=== PATIENT | male | born 1955 | race Caucasian/White ===

== ENCOUNTER → 2023-06-26 07:56 | Outpatient (CLI) | payer MEDICARE, OTHER, SELFPAY ==
--- NOTE | 2023-06-26 08:32 | DI.MRI.S_ITS ---
PROCEDURE: MR SHOULDER RT WO CON INDICATIONS: RIGHT SHOULDER WEAKNESS TECHNIQUE: Noncontrast oblique coronal T2 fast spin echo with fat saturation, oblique sagittal T1 spin echo and T2 fast spin echo with fat saturation, axial T1 spin echo and T2 fast spin echo with fat saturation through the shoulder. COMPARISON: None. FINDINGS: Image quality: Excellent. Rotator cuff: Full-thickness tearing of the entire supraspinatus and infraspinatus tendons with medial retraction and atrophy of the supraspinatus and infraspinatus. There is full-thickness tearing of the upper subscapularis tendon. The teres minor tendon is intact. Bones and bursae: No bone marrow contusions or fractures. Moderate glenohumeral and acromioclavicular joint degeneration. The acromion demonstrates conventional anatomy, without an os acromiale. No pathologic subacromial-subdeltoid or subcoracoid bursal fluid is present. Capsule and soft tissues: There is diffuse degenerative fraying of the glenoid labrum. Full-thickness biceps tendon tearing is present. There is a small glenohumeral joint effusion. Multiple intra-articular loose bodies are present, largest of which is in the posterior aspect of the glenohumeral joint measuring roughly 10 mm diameter. The rotator interval appears normal, without fibrosis. The coracohumeral ligament is normal in thickness. IMPRESSION: 1. Full-thickness tearing and atrophy of the supraspinatus and infraspinatus tendons. 2. Full-thickness tearing of the subscapularis as above. 3. Acromioclavicular and glenohumeral joint osteoarthritis. 4. Degenerative glenoid labral tearing. 5. Biceps tendon tear. 6. Glenohumeral joint effusion with intra-articular loose bodies. Dictated by: Alea Sharpe M.D. on 06/26/2023 at 12:09 Approved by: Alea Sharpe M.D. on 06/26/2023 at 12:12
== END ==
PROVIDERS: PCP Family Medicine; Referring Provider Family Medicine; Visit Provider Family Medicine
DX: M75.121 Complete rotator cuff tear or rupture of right shoulder, not specified as traumatic (principal); M19.011 Primary osteoarthritis, right shoulder; S43.491A Other sprain of right shoulder joint, initial encounter; S46.211A Strain of muscle, fascia and tendon of other parts of biceps, right arm, initial encounter; M25.411 Effusion, right shoulder; R29.898 Other symptoms and signs involving the musculoskeletal system
CPT/HCPCS: 73221

== ENCOUNTER 2023-12-15 08:57 | Day surgery (SDC) | payer MEDICARE, OTHER, SELFPAY ==
--- NOTE | 2023-12-15 | PATH_ITS ---
[facility] Accession Number: [id number] No. of containers..01 Tissue . 01 Material submitted: . colon - HEPATIC FLEXURE POLYP . 01 Diagnosis: HEPATIC FLEXURE POLYP: Tubular adenoma. [facility] 12/20/2023 1055 Local . 01 Electronically signed: . Bran Acosta MD, Pathologist NPI- [id number] . 01 Gross description: . Received in formalin, labeled with two patient identifiers and hepatic flexure polyp, is a single calvillo soft tissue fragment measuring 0.4 cm in greatest dimension. Submitted in cassette A1. ([id number]) /FRR 12/20/2023 1055 Local . 01 Pathologist provided ICD-10: D12.3 . 01 CPT . 858945 Specimen Comment: A courtesy copy of this report has been sent to [phone] Performed at: [address] [facility] [id number] MD Bran Acosta MD Phone: [phone]
[2023-12-15] MEDS: LACTATED RINGERS 1,000 ML 42 ML IV (09:43)
[2023-12-15 09:47] VITALS: BP 149/78; PULSE 83; RESP 16; TEMP 36.4; O2SAT 96
--- NOTE | 2023-12-15 10:32 | P.HP_ITS ---
History of Present Illness History of Present Illness Date Patient Seen: 12/15/23 Time Patient Seen: 10:32 Chief complaint: Screening Colonoscopy Narrative: Unclear if h/o polyps, grandfather in his 70's with colon cancer. Last scope 5 years. [facility] Social History Smoking Status: Never smoker alcohol intake: current Meds Home Medications and Allergies Home Medications Medication Instructions Recorded Confirmed Type multivitamin (Multiple Vitamins 1 tab PO QDAY ##0 01/20/17 12/15/23 History tablet) omega 9-pth-fwt-fish oil 1,000 mg 1,000 mg PO ##0 01/20/17 History (120 mg-180 mg) capsule (Fish Oil) atorvastatin 10 mg tablet 10 mg PO DAILY 12/15/23 12/15/23 History Allergies Allergy/AdvReac Type Severity Reaction Status Date / Time No Known Allergies Allergy Uncoded 12/15/23 09:41 Review of Systems Review of Systems ROS: Yes All systems reviewed with the patient and are negative except as otherwise documented Exam Vital Signs (past 8 hours): - 12/15/23 09:47 Temperature 97.5 F L Pulse Rate 83 Respiratory Rate 16 Blood Pressure 149/78 H Pulse Oximetry 96 Oxygen Delivery Method Room Air Oxygen Delivery Method Room Air Const General: cooperative, healthy appearing and comfortable Nutritional Appearance: average body habitus HENMT Head: normocephalic and atraumatic Ears: hearing grossly normal bilaterally Eyes Sclera: sclerae normal Neck Neck: trachea midline Resp Effort & Inspection: normal respiratory effort and able to speak in complete sentences Cardio Rate: regular rate Rhythm: regular rhythm GI Inspection: non-distended Palpation: soft Skin General: elasticity normal and turgor normal Neuro General: patient alert, patient awake and patient oriented x3 Cognition: normal cognition Psych Mental Status: mental status grossly normal Judgment: judgment good Assessment & Plan Assessment & Plan narrative: Family history of colon cancer and possible h/o polyps Plan: colonoscopy with anesthesia Time-Based Coding :: [TOTAL MINUTES] spent with patient and on the chart (including review of chart, obtaining history, exam, reviewing outside data, placing orders, documenting exam and treatment plan, and counseling patient) on [DATE].
--- NOTE | 2023-12-15 10:35 | PM.OP.COLON ---
Operative Date/Time/Diagnoses Date of procedure: 12/15/23 Time of procedure: 10:47 Pre-op diagnosis: History of colon polyps, family history colon cancer Post-op diagnosis: same Procedure & Clinicians Study performed: Colonoscopy with anesthesia and cold forceps polypectomy Same procedure as scheduled: Yes Indications: Family history colon cancer, self history colon polyps Surgeon: Melba Cosme Procedure Notes Procedure in detail: Preop diagnosis: History of colon polyps Postop diagnosis: Same Operative procedure: Colonoscopy with cold forceps polypectomy Surgeon: Dianna Cosme MD Findings: 2 mm adenomatous appearing polyp at hepatic flexure Procedure: Patient placed in a lateral position. Rectal exam performed showing normal tone no masses. Colonoscope inserted into the rectum and advanced to ileocecal valve with minimal difficulty. Insufflation extraction of the scope including retroflex in the rectum was completed. Impression: Hepatic flexure polyp 2 mm in size, small diverticuli within the sigmoid colon Plan: Repeat colonoscopy in 5 years Findings: divertiulosis and polyp(s) (2 mm hepatic flexure) Specimen(s): other (Polyp 2 mm hepatic flexure) Complications: none Post-procedure Recommendations: Colonoscopy in 5 years Follow up: as needed Disposition: PACU
[2023-12-15 10:50] VITALS: BP 112/74; PULSE 79; RESP 17; TEMP 37.3; O2SAT 94
[2023-12-15 10:56] VITALS: BP 111/66; PULSE 76; RESP 16; O2SAT 94
[2023-12-15 11:00] VITALS: BP 106/70; PULSE 71; RESP 22; O2SAT 96
[2023-12-15 11:05] VITALS: BP 117/71; PULSE 79; RESP 21; O2SAT 94
== END 2023-12-15 11:21 | disposition home or self-care (01) ==
PROVIDERS: PCP Family Medicine; Referring Provider Surgery; Visit Provider Surgery
PROC: 0DJD8ZZ Inspection of Lower Intestinal Tract, Via Natural or Artificial Opening Endoscopic (ICD-10-PCS; CPT 45378; principal; 2023-12-15 10:15)
DX: Z12.11 Encounter for screening for malignant neoplasm of colon (principal); Z86.010 Personal history of colon polyps; Z80.0 Family history of malignant neoplasm of digestive organs; K57.30 Diverticulosis of large intestine without perforation or abscess without bleeding; D12.3 Benign neoplasm of transverse colon
CPT/HCPCS: 45380; J2704